=== PATIENT | female | born 1965 | race Caucasian/White ===

== ENCOUNTER 2017-03-16 08:17 | Emergency (ER) | payer OTHER ==
[2017-03-16] MEDS: predniSONE 20 MG TAB PO (09:15)
[2017-03-16] MEDS: ACETAMINOPHEN 325 MG TAB PO (09:15)
[2017-03-16] MEDS: ALBUTEROL 0.083% (NEB) 2.5 MG/3 ML AMP HHN (09:18)
== END 2017-03-16 11:10 | disposition home or self-care (01) ==
LOC: FTE 08:17
DX: R50.9 Fever, unspecified (principal); J45.909 Unspecified asthma, uncomplicated; M54.9 Dorsalgia, unspecified; R09.81 Nasal congestion; R51 Headache; I10 Essential (primary) hypertension
CPT/HCPCS: 71045; 94664; 99284-25

== ENCOUNTER 2018-10-24 19:20 | Emergency (ER) | payer OTHER ==
[2018-10-24] MEDS: HYDROCODONE/APAP (5/325) TAB PO (20:24)
[2018-10-24] MEDS: KETOROLAC 30 MG INJ IM (20:24)
== END 2018-10-24 21:25 | disposition home or self-care (01) ==
LOC: FTE 19:20
DX: M79.602 Pain in left arm (principal); I10 Essential (primary) hypertension
CPT/HCPCS: 93005; 96372; 99284-25